=== PATIENT | male | born 1980 | race Caucasian/White ===

== ENCOUNTER 2017-05-28 04:11 | Inpatient (IN) | payer SELFPAY ==
[2017-05-28] MEDS ORDERED: ACETAMINOPHEN 325 MG TABLET. PO (04:45)
[2017-05-28] MEDS: MORPHINE SULFATE 4 MG/ML DISP.SYRIN. IV ×4 (04:51→17:03)
[2017-05-28] MEDS: ONDANSETRON PF 4 MG/2 ML VIAL. IV (04:51)
[2017-05-28] MEDS: fentaNYL PF VIAL 100 MCG/2 ML VIAL IV ×6 (06:17→21:41)
[2017-05-28 08:06] LABS: ADD MAN DIFF? NO
[2017-05-28 08:09] LABS: BASO # 0.1 x10^3/uL (0.0-0.2); BASO % 0 % (0-3); EOS # 0.1 x10^3/uL (0.0-0.7); EOS % 1 % (0-3); HEMATOCRIT 40.2 % (39.0-53.0); HEMOGLOBIN 13.3 g/dL (13.0-17.5); LYMPH # 3.5 x10^3/uL (1.0-4.8); LYMPH % 31 % (24-48); MEAN CORPUSCULAR HEMOGLOBIN 30 pg (25-35); MEAN CORPUSCULAR HGB CONC 33 g/dL (31-37); MEAN CORPUSCULAR VOLUME 90 fL (79-100); MONO # 1.2 x10^3/uL (0.0-1.1); MONO % 11 % (0-9); NEUT # 6.4 x10^3uL (1.8-7.7); NEUT % 57 % (31-73); PLATELET COUNT 220 x10^3/uL (140-400); RED BLOOD COUNT 4.45 x10^6/uL (4.30-5.70); RED CELL DISTRIBUTION WIDTH 13.4 % (11.5-14.5); WHITE BLOOD COUNT 11.3 x10^3/uL (4.0-11.0)
[2017-05-28 08:23] LABS: PROTHROMBIN TIME PATIENT 12.6 SEC (11.7-14.0)
[2017-05-28 08:31] LABS: ANION GAP 6 (6-14); BLOOD UREA NITROGEN 13 mg/dL (8-26); CALCIUM 8.6 mg/dL (8.5-10.1); CARBON DIOXIDE 28 mmol/L (21-32); CHLORIDE 105 mmol/L (98-107); GFR 84.1; GLUCOSE 96 mg/dL (70-99); POTASSIUM 4.1 mmol/L (3.5-5.1); SODIUM 139 mmol/L (136-145)
[2017-05-28] MEDS ORDERED: BUPIVACAINE-EPI 0.25%-1:200000 50 ML VIAL. (09:24)
[2017-05-28] MEDS ORDERED: PROCHLORPERAZINE 10 MG/2 ML VIAL. IV (09:45)
[2017-05-28] MEDS ORDERED: MORPHINE SULFATE 4 MG/ML DISP.SYRIN. IV ×2 (09:45→12:15)
[2017-05-28] MEDS ORDERED: ONDANSETRON PF 4 MG/2 ML VIAL. IV (09:45)
[2017-05-28] MEDS ORDERED: fentaNYL PF VIAL 100 MCG/2 ML VIAL IV ×3 (09:45→10:15)
[2017-05-28] MEDS ORDERED: LIDOCAINE 1% PF 2 ML VIAL. ID (09:45)
[2017-05-28] MEDS: KETOROLAC 30 MG/ML INJ. IV (12:40)
[2017-05-28] MEDS: IV RINGERS,LACTATED 1000ML 1,000 ML IV (12:43)
[2017-05-28] MEDS ORDERED: PROPOFOL 20 ML IV (12:43)
[2017-05-28] MEDS ORDERED: SEVOFLURANE > 120 MINUTES. IH (12:43)
[2017-05-28] MEDS ORDERED: ONDANSETRON PF 4 MG/2 ML VIAL. (12:43)
[2017-05-28] MEDS ORDERED: DEXAMETHASONE SOD PHOS 20 MG/5 ML VIAL. (12:43)
[2017-05-28] MEDS ORDERED: fentaNYL PF VIAL 100 MCG/2 ML VIAL (12:44)
[2017-05-28] MEDS ORDERED: LIDOCAINE 1% PF 5 ML VIAL. (12:49)
[2017-05-28] MEDS ORDERED: FAMOTIDINE 20 MG/2 ML VIAL (12:50)
[2017-05-28] MEDS ORDERED: SUCCINYLCHOLINE 200 MG/10 ML VIAL. (13:09)
[2017-05-28] MEDS ORDERED: SEVOFLURANE 61 TO 120 MINUTES. IH (14:09)
[2017-05-28 15:19] LABS: AMPHETAMINE/METHAMPHETAMINE POS (NEG); BARBITURATES NEG (NEG); BENZODIAZEPINES NEG (NEG); CANNABINOIDS POS (NEG); COCAINE NEG (NEG); METHADONE NEG (NEG); OPIATES POS (NEG); PHENCYCLIDINE NEG (NEG)
[2017-05-28 15:20] LABS: ETHANOL, URINE NEG (NEG)
[2017-05-28 15:22] LABS: AMORPHOUS SEDIMENT,UR PRESENT /HPF; BACTERIA,URINE 0 /HPF (0-FEW); BILIRUBIN,URINE NEGATIVE (NEG); CLARITY,URINE CLEAR; COLOR,URINE YELLOW; GLUCOSE,URINE NEGATIVE (NEG); HYALINE CASTS, URINE MODERATE /HPF; NITRITE,URINE NEGATIVE (NEG); PH,URINE 5.5; PROTEIN,URINE NEGATIVE (NEG-TRACE); RBC,URINE 0 /HPF (0-2); SQUAMOUS EPITHELIAL CELL,UR FEW /LPF; UROBILINOGEN,URINE 0.2 mg/dL (0.2 mg/dL); WBC,URINE 0 /HPF (0-4)
[2017-05-28 16:08] LABS: BARBITURATES NEG (NEG); BENZODIAZEPINES NEG (NEG); CANNABINOIDS POS (NEG); COCAINE NEG (NEG); METHADONE NEG (NEG); OPIATES POS (NEG); PHENCYCLIDINE NEG (NEG)
[2017-05-28 16:09] LABS: AMPHETAMINE/METHAMPHETAMINE POS (NEG); ETHANOL, URINE NEG (NEG)
== END 2017-05-28 21:59 | disposition short-term general hospital (02) | DRG 493 ==
LOC: 4 NORTH 04:11
PROC: 0KNT0ZZ Release Left Lower Leg Muscle, Open Approach (ICD-10-PCS; principal; 2017-05-28 13:01)
PROC: 0QSH34Z Reposition Left Tibia with Internal Fixation Device, Percutaneous Approach (ICD-10-PCS; 2017-05-28 13:01)
PROC: 0QSK35Z Reposition Left Fibula with External Fixation Device, Percutaneous Approach (ICD-10-PCS; 2017-05-28 13:01)
DX: S82.872A Displaced pilon fracture of left tibia, initial encounter for closed fracture (principal); F11.20 Opioid dependence, uncomplicated; T79.A0XA Compartment syndrome, unspecified, initial encounter; S82.202A Unspecified fracture of shaft of left tibia, initial encounter for closed fracture; S82.492A Other fracture of shaft of left fibula, initial encounter for closed fracture; S82.852A Displaced trimalleolar fracture of left lower leg, initial encounter for closed fracture; I10 Essential (primary) hypertension; W11.XXXA Fall on and from ladder, initial encounter; Z82.49 Family history of ischemic heart disease and other diseases of the circulatory system; Y93.89 Activity, other specified; Y92.89 Other specified places as the place of occurrence of the external cause; Y99.8 Other external cause status
CPT/HCPCS: 36415; 76000; 80048; 80307; 81001; 85025; 85610; A4215; C1713; J0330; J0690; J1100; J1885; J2060; J2270; J2405; J2704; J3010; J7120; S0028